=== PATIENT | male | born 1965 | race Two or more races ===

== ENCOUNTER 2020-01-21 13:50 | Outpatient (CLI) | payer OTHER | END 2020-01-21 23:59 | disposition home or self-care (01) | LOC: MSC 13:50 | PROVIDERS: ATTEND Internal Medicine | DX: J44.9 Chronic obstructive pulmonary disease, unspecified (principal); N17.9 Acute kidney failure, unspecified; F32.9 Major depressive disorder, single episode, unspecified; I10 Essential (primary) hypertension; D64.9 Anemia, unspecified ==

== ENCOUNTER 2020-02-01 03:00 | Outpatient (CLI) | payer OTHER | END 2020-02-01 23:59 | disposition home or self-care (01) | LOC: MSC 03:00 | PROVIDERS: ATTEND Internal Medicine | DX: J44.9 Chronic obstructive pulmonary disease, unspecified (principal); F32.9 Major depressive disorder, single episode, unspecified; I10 Essential (primary) hypertension; N17.9 Acute kidney failure, unspecified; D64.9 Anemia, unspecified ==